=== PATIENT | male | born 1990 | race Caucasian/White ===

== ENCOUNTER 2018-10-05 23:06 | Inpatient (IN) | payer MEDICAID ==
[~2018-10-05] VITALS: Ht 177.8 cm; Wt 95.9 kg
[2018-10-05] MEDS ORDERED: BUPR150T3 PO (23:28)
[2018-10-06 00:05] LABS: HEMATOCRIT 47.4 % (42.0-52.0); HEMOGLOBIN 16.7 g/dl (13.5-17.5); MEAN CORPUSCULAR HEMOGLOBIN 31.8 pg (27.0-33.0); MEAN CORPUSCULAR HGB CONC 35.2 g/dl (32.0-36.5); MEAN CORPUSCULAR VOLUME 90.3 fl (80.0-96.0); PLATELET COUNT, AUTOMATED 375 10^3/uL (150-450); RED BLOOD COUNT 5.25 10^6/uL (4.30-6.10); WHITE BLOOD COUNT 13.6 10^3/uL (4.0-10.0)
[2018-10-06 00:08] LABS: AMPHETAMINES LEVEL URINE NEGATIVE (NEGATIVE); BARBITURATES URINE NEGATIVE (NEGATIVE); BENZODIAZEPINES URINE NEGATIVE (NEGATIVE); CANNABINOIDS URINE NEGATIVE (NEGATIVE); COCAINE METABOLITE URINE NEGATIVE (NEGATIVE); METHADONE URINE NEGATIVE (NEGATIVE); OPIATES URINE NEGATIVE (NEGATIVE); PHENCYCLIDINE URINE NEGATIVE (NEGATIVE)
[2018-10-06] MEDS ORDERED: NICOTINE 21MG/24HR 1 EA TRANSDERMAL TD ONE (00:15)
[2018-10-06 00:39] LABS: ACETAMINOPHEN LEVEL < 2.0 UG/ML (10.0-30.0); ALBUMIN 4.2 GM/DL (3.2-5.2); ALT/SGPT 39 U/L (12-78); BILIRUBIN,DIRECT < 0.1 MG/DL (0.0-0.2); BILIRUBIN,TOTAL 0.3 MG/DL (0.2-1.0); BLOOD UREA NITROGEN 16 MG/DL (7-18); CALCIUM LEVEL 8.3 MG/DL (8.5-10.1); CARBON DIOXIDE LEVEL 24 MEQ/L (21-32); CHLORIDE LEVEL 112 MEQ/L (98-107); CREATININE FOR GFR 0.82 MG/DL (0.70-1.30); ETHYL ALCOHOL (ETHANOL) 0.262 % (0.000-0.010); GLOMERULAR FILTRATION RATE > 60.0 (>60); GLUCOSE, FASTING 106 MG/DL (70-100); POTASSIUM SERUM 4.4 MEQ/L (3.5-5.1); SALICYLATE LEVEL 1.8 MG/DL (5.0-30.0); SODIUM LEVEL 143 MEQ/L (136-145); TOTAL PROTEIN 7.5 GM/DL (6.4-8.2)
[2018-10-06] MEDS ORDERED: buPROPion **XL** TABLET 150MG (WELLBUTRIN XL) PO ONE (11:00)
[2018-10-06] MEDS ORDERED: ACETAMINOPHEN TAB 650MG DOSE (2X325MG) As Ordered ONE (11:02)
[2018-10-06] MEDS ORDERED: ACETAMINOPHEN TAB 650MG DOSE (2X325MG) PO ONE (11:15)
[2018-10-07] MEDS ORDERED: buPROPion **XL** TABLET 150MG (WELLBUTRIN XL) PO ONE (11:00)
[2018-10-07] MEDS ORDERED: ACETAMINOPHEN TAB 650MG DOSE (2X325MG) PO ONE (13:00)
[2018-10-07] MEDS ORDERED: NICOTINE 21MG/24HR 1 EA TRANSDERMAL TD ONE (13:00)
[2018-10-07] MEDS ORDERED: traZODone 50 MG TAB PO PRN ×2 (16:15→16:30)
[2018-10-07] MEDS ORDERED: OLANZapine ORAL DISINTEGRATING TAB 5MG PO PRN ×2 (16:15→16:30)
[2018-10-07] MEDS ORDERED: MOM 30ML SUSPENSION UDC PO PRN ×2 (16:15→16:30)
[2018-10-07] MEDS ORDERED: ACETAMINOPHEN TAB 650MG DOSE (2X325MG) PO PRN ×2 (16:15→16:30)
[2018-10-07] MEDS ORDERED: LORazepam 2 MG TAB PO PRN (17:45)
[2018-10-07 20:18] VITALS: BP 146/103
[2018-10-07 20:21] VITALS: BP 146/103
[2018-10-07] MEDS: HYDROCORTISONE 1% CREAM 30 GM TOP SCH (21:00)
[2018-10-07 21:02] VITALS: BP 140/100
[2018-10-07] MEDS: THIAMINE 100 MG TAB PO SCH (21:18)
--- NOTE | 2018-10-07 22:52 | HPEPDOC ---
General Date of Admission Oct 07, 2018 at 16:03 Date of Service: Oct 07, 2018 Attending Physician: JORDAN MIDDLETON MD Chief Complaint The patient is a 28-year-old male admitted with a reason for visit of E. History of Present Illness Elias is a 28-year-old male, primary medical history significant for nicotine dependence, polysubstance abuse, alcohol abuse, who was brought in by [facility] on account of patient verbalizing suicidal ideation. Patient was intoxicated and it is documented he planned to obtain an knife to cut himself. On assessment, patient denies any knowledge of why he is admitted. He admits to heavy alcohol intake and polysubstance abuse. He denies chest pain, shortness of breath, weakness, nausea, chills, fever. Home Medications Scheduled Bupropion Hcl (Bupropion Xl) 150 Mg Tab.er.24h, 150 MG PO DAILY, (Reported) Allergies Coded Allergies: Sulfa (Sulfonamide Antibiotics) (Verified Allergy, Intermediate, hives, 10/05/18) ENVIROMENTAL (Verified Allergy, Unknown, 10/07/18) Past Medical History Medical History Depression ADHD Nicotine dependence Alcohol abuse, Polysubstance abuse Surgical History Ear tubes Tonsillectomy, adenoidectomy Family History Denies family history Social History * Smoker: current smoker, greater than 1 pack/day (2 packs per day), chew Alcohol: heavy Drugs: marijuana, other (MDMA) A-FIB/CHADSVASC A-FIB History Current/History of A-Fib/PAF?: No Current PO Anticoag Therapy: No Review of Systems Other systems Review of systems was limited due to patient's clinical condition and not been able to recall recent past events. Physical Examination Other physical findings GENERAL: NAD SKIN : Warm, rash to right abdomen HEENT: Atraumatic, normocephalic, PERRL, moist mucous membrane CARDIOVASCULAR: Regular rate and rhythm, S1S2, no JVD, no edema, distal pulses + and palpable RESP: CTAB, no accessory muscle use noted ABDOMEN: BS+ non distended non tender MS: no joint deformities NEURO: Alert and oriented x 3, CN2-12 grossly intact PSYCH: no anxiety or agitation, appropriate mood and affect. Vital Signs Vital Signs Date Time Temp Pulse Resp B/P (MAP) Pulse Ox O2 Delivery O2 Flow Rate FiO2 10/07/18 21:02 140/100 (113) 10/07/18 20:21 98.4 93 18 99 10/07/18 15:11 Room Air Assessment/Plan Abdominal rash with pruritus -Hydrocortisone cream Alcohol abuse -Assessment and management by primary team Polysubstance abuse -Assessment and management by primary team ADHD -Assessment and management by primary team Plan / VTE VTE Prophylaxis Ordered?: No VTE Exclusion Mechanical Proph: Low Risk for VTE HARESH TELLEZ DIGITAL MEDIA COORDINATOR Oct 07, 2018 22:51
[2018-10-08 06:00] VITALS: BP 124/76
[2018-10-08] MEDS: HYDROCORTISONE 1% CREAM 30 GM TOP SCH ×2 (08:28→21:00)
[2018-10-08] MEDS: THIAMINE 100 MG TAB PO SCH (08:29)
[2018-10-08] MEDS: buPROPion **XL** TABLET 150MG (WELLBUTRIN XL) PO SCH (08:31)
[2018-10-08] MEDS ORDERED: buPROPion **XL** TABLET 150MG (WELLBUTRIN XL) PO SCH (09:00)
[2018-10-08] MEDS ORDERED: FOLIC ACID 1 MG TAB PO SCH (09:00)
[2018-10-08] MEDS ORDERED: MULTIVITAMINS/MINERALS THERAP 1 TAB PO SCH (09:00)
[2018-10-08] MEDS: NICOTINE 21MG/24HR 1 EA TRANSDERMAL TD SCH (10:03)
--- NOTE | 2018-10-08 10:59 | MHHPEPDOC ---
General Date Of Admission: Oct 07, 2018 Legal Status: 9.39 Chief Complaint "I feeling suicidal." History of Present Illness HISTORY OF THE PRESENT ILLNESS: Patient is a 28 -year-old , male, with a history of depression and alcohol abuse who was brought to ED by PD under 9.41 after expressing thoughts to suicide with plan to get a knife and cut himself to his family while intoxicated per ED. In the ED, pt stated he could not remember what happened, why he was here, and that he had endorsed SI that he denied in the ED due to heavy intoxication with alcohol. Pt stated in the ED "I was asleep on a wood pile and I woke up with a flashlight in my face." He states that he probably got in an argument with his mother who he lives with ("she aways annoys me") while intoxicated and just said he was suicidal out of anger in the ED. He denied SI/HI, hallucinations, delusions in the ED. Psychiatric Review of Systems Depression (2 or more weeks): depressed mood, suicidal thoughts Madie (4 or more days of): denies Psychosis: denies PTSD: denies Anxiety: situational anxiety, stressor related anxiety Anxiety/ 6 months or more of: restlessness, keyed up, irritability Past Psychiatric History Previous Psychiatric Diagnosis: Depression, alcohol use d/o, ADHD Previous Psychiatric Admissions: [facility] 04/14/14 for SI and alcohol abuse and once in [place] Suicide Attempts: denies Psychiatric Follow-up: denies Psychiatric medications: currently takes Wellbutrin 150mg daily prescribed by his PCP in [place]. adderall in the past Past Medical History Medical Problems knee pain, blurred vision rt eye Head Injury: No Seizures: No Hospitalizations: Yes Surgeries: Yes (tonsilectomy and adenoidectomy, laryngotomy) Family Medical/Psychiatric HX Medical Problems noncontributory Psychiatric Disorders: Yes (mother - possible depression) Suicide Attemps/Completions: Yes (Cousin suicide attempt) Addiction History nicotine (smokes and chews tobacco), alcohol (bal 0.262) Social History Childhood: Born in [place], raised in [place] by his mother until he was 10y/o then his mother went to [employer] for [employer] and he moved in with his father. 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 Social Support: mother Legal: denies Marital: single, never , no kids (doesn't want kids b/c they annoy him) Mental Status Examination General Appearance: well groomed, appears stated age, hospital scubs/clothing Build: average Demeanor: average Eye Contact: average Activity: average Behavior: cooperative Speech: clear, spontaneous, reg/rate,rhythm,volume Mood: euthymic, irritable Mood "fine" Affect: full, appropriate, congruent Thought Process: logical/linear, intact Thought Content (Delusions): none reported, denies SI, HI, AVH Thought Content (Other): none reported Thought Content (Aggressive): none reported Perception (Hallucinations): none reported Perception (Other): none reported Cognition (Impairment of): none reported Cognition(Intelligence Est.): average Oriented: Awake, Alert, Oriented times three Insight: fair Judgment: Fair Psychosis: Denies Diagnoses depression unspecified r/o substance induced mood d/o secondary alcohol alcohol use d/o A-FIB/CHADSVASC A-FIB History Current/History of A-Fib/PAF?: No Current PO Anticoag Therapy: No Treatment Treatment ordered: NONE Reason Anticoagulant not given: Not indicated/[id number] Assessment Pt seen and states "I have no clue why I'm here... I was just drunk" and denies depression and SI. States he takes Wellbutrin XL prescribed by his PCP in [place]. States he doesn't drink regularly and it was the first time he had drank while on Wellburtin, realizes he should do that again. States the last thing he remember is taking shots of liquor with his friend then waking up to a flashlight (officer). Denies depression, SI/HI, hallucinations, delusions. States he just wants to go home. Initial Treatment Plan 1. Patient was admitted on a 9.39 status. 2. Complete history was obtained. 3. With patients permission, family will be contacted and database will be expanded. 4. Patients medication regimen will be reviewed and changed accordingly. 5. Patient will be provided with protected environment. 6. Patient will be treated with individual, group, and milieu therapies. 7. Patient will receive supportive psych-education. 8. Discharge planning will commence immediately. 9. Outpatient follow-up treatment will be strongly recommended. 10. The initial treatment plan will focus initially on: * Depression. * Risk for suicide. * Substance abuse. 11. monitor for safety ESTIMATED LENGTH OF STAY: 3-5 DAYS. TIME SPENT COUNSELING AND COORDINATING INITIAL CARE: 60 minutes. Vital Signs Vital Signs Date Time Temp Pulse Resp B/P (MAP) Pulse Ox O2 Delivery O2 Flow Rate FiO2 10/08/18 06:00 60 124/76 10/08/18 06:00 98.0 18 10/07/18 20:21 99 10/07/18 15:11 Room Air Medications Scheduled Bupropion Hcl (Bupropion Xl) 150 Mg Tab.er.24h, 150 MG PO DAILY, (Reported) Allergies Coded Allergies: Sulfa (Sulfonamide Antibiotics) (Verified Allergy, Intermediate, hives, 10/05/18) ENVIROMENTAL (Verified Allergy, Unknown, 10/07/18) TROY SAMANIEGO DO Oct 08, 2018 10:59 am
[2018-10-08 18:11] VITALS: BP 145/76
[2018-10-09 06:21] VITALS: BP 113/61
[2018-10-09] MEDS: NICOTINE 21MG/24HR 1 EA TRANSDERMAL TD SCH (08:03)
[2018-10-09] MEDS: buPROPion **XL** TABLET 150MG (WELLBUTRIN XL) PO SCH (08:03)
[2018-10-09] MEDS: HYDROCORTISONE 1% CREAM 30 GM TOP SCH (08:05)
[2018-10-09] MEDS ORDERED: BUPR150T3 PO (08:37)
--- NOTE | 2018-10-09 08:37 | MHDSPDOC ---
[facility] Discharge Summary Discharge Summary DATE OF ADMISSION: Oct 07, 2018 at 4:03 pm DATE OF DISCHARGE: October 09, 2018 DISCHARGE DIAGNOSES: depression unspecified r/o substance induced mood d/o secondary alcohol alcohol use d/o REASON FOR ADMISSION: Patient is a 28 -year-old , male, with a history of depression and alcohol abuse who was brought to ED by PD under 9.41 after expressing thoughts to suicide with plan to get a knife and cut himself to his family while intoxicated per ED. In the ED, pt stated he could not remember what happened, why he was here, and that he had endorsed SI that he denied in the ED due to heavy intoxication with alcohol. Pt stated in the ED "I was asleep on a wood pile and I woke up with a flashlight in my face." He states that he probably got in an argument with his mother who he lives with ("she aways annoys me") while intoxicated and just said he was suicidal out of anger in the ED. He denied SI/HI, hallucinations, delusions in the ED. CONSULTANTS INVOLVED:none TREATMENT AND PROGRESS ON THE UNIT : Pt was admitted to [facility], seen for psychiatric assessment and restarted on his outpatient medication wellburtin xl 150mg daily. He was provided trazodone 50mg qhs prn insomnia. Pt found his medications beneficial and tolerated them well. He attended groups daily during his stay. His symptoms improved with treatment. On day of discharge he denied depression, anxiety, insomnia, SI/HI, hallucinations, delusions, alcohol withdra wal. He was discharged home with follow-up at [facility] and inpatient substance abuse treatment next week (set up by pia prior admission). He felt safe for discharge. DISCHARGE ASSESSMENT: Pt seen and states that his mood is good and that his looking forward to going home to his mother's house today. States he slept well last night. Feels he is tolerating his medications and they're beneficial. He is attending groups and finding them helpful. He denies depression, anxiety, insomnia, SI/HI, hallucinations, delusions, alcohol withdrawal. Pt feels safe to be discharged home. MENTAL STATUS EXAMINATION ON DISCHARGE: General Appearance: well groomed, appears stated age, hospital scrubs/clothing Build: average Demeanor: average Eye Contact: average Activity: average Behavior: cooperative Speech: clear, spontaneous, reg/rate,rhythm,volume Mood: euthymic, full Mood "good" Affect: full, appropriate, congruent Thought Process: logical/linear, intact Thought Content (Delusions): none reported, denies SI, HI, AVH Thought Content (Other): none reported Thought Content (Aggressive): none reported Perception (Hallucinations): none reported Perception (Other): none reported Cognition (Impairment of): none reported Cognition(Intelligence Est.): average Oriented: Awake, Alert, Oriented times three Insight: good Judgment: good Psychosis: Denies MEDICATIONS ON DISCHARGE: Wellbutrin xl 150mg daily PLAN/FOLLOWUP ARRANGEMENTS: D/c home with follow-up at [facility] and inpatient substance abuse treatment next week. The amount of time spent in the coordination of care for this patient was approximately 30 minutes. Vital Signs/I&Os Vital Signs Date Time Temp Pulse Resp B/P (MAP) Pulse Ox O2 Delivery O2 Flow Rate FiO2 10/09/18 06:21 97.9 75 16 113/61 (78) 10/07/18 20:21 99 10/07/18 15:11 Room Air Medications Scheduled Bupropion Hcl (Bupropion Xl) 150 Mg Tab.er.24h, 150 MG PO DAILY, (Reported) Allergies Coded Allergies: Sulfa (Sulfonamide Antibiotics) (Verified Allergy, Intermediate, hives, 10/05/18) ENVIROMENTAL (Verified Allergy, Unknown, 10/07/18) TROY SAMANIEGO DO Oct 09, 2018 8:37 am
== END 2018-10-09 10:15 | disposition home or self-care (01) | DRG 754 ==
LOC: M ED 23:06 → M ED INP 10-07 16:03 → M PSY 10-07 18:54
PROVIDERS: ADMIT Psychiatry & Neurology Addiction Medicine; ATTEND Psychiatry & Neurology Psychiatry
DX: F32.9 Major depressive disorder, single episode, unspecified (principal); F10.94 Alcohol use, unspecified with alcohol-induced mood disorder; R45.851 Suicidal ideations; Z88.2 Allergy status to sulfonamides; F17.200 Nicotine dependence, unspecified, uncomplicated; F90.9 Attention-deficit hyperactivity disorder, unspecified type

== ENCOUNTER 2019-05-19 15:28 | Inpatient (IN) | payer MEDICAID, OTHER ==
[~2019-05-19] VITALS: Ht 177.8 cm; Wt 120.2 kg
[~2019-05-19 15:28] MED LIST: BUPR150T3 PO
[2019-05-19] MEDS ORDERED: GABA-845 PO (16:11)
[2019-05-19] MEDS ORDERED: SERT-138 PO (16:11)
[2019-05-19] MEDS ORDERED: TRAZ-257 PO (16:11)
[2019-05-19 16:43] LABS: HEMATOCRIT 46.7 % (42.0-52.0); HEMOGLOBIN 16.6 g/dl (13.5-17.5); MEAN CORPUSCULAR HEMOGLOBIN 31.6 pg (27.0-33.0); MEAN CORPUSCULAR HGB CONC 35.5 g/dl (32.0-36.5); MEAN CORPUSCULAR VOLUME 88.8 fl (80.0-96.0); PLATELET COUNT, AUTOMATED 385 10^3/uL (150-450); RED BLOOD COUNT 5.26 10^6/uL (4.30-6.10); WHITE BLOOD COUNT 9.1 10^3/uL (4.0-10.0)
[2019-05-19] MEDS ORDERED: NICOTINE 21MG/24HR 1 EA TRANSDERMAL TD ONE (17:15)
[2019-05-19 17:25] LABS: ACETAMINOPHEN LEVEL < 2.0 UG/ML (10.0-30.0); ALBUMIN 4.6 GM/DL (3.2-5.2); ALT/SGPT 398 U/L (12-78); BILIRUBIN,DIRECT 0.1 MG/DL (0.0-0.2); BILIRUBIN,TOTAL 0.3 MG/DL (0.2-1.0); BLOOD UREA NITROGEN 10 MG/DL (7-18); CALCIUM LEVEL 8.9 MG/DL (8.5-10.1); CARBON DIOXIDE LEVEL 23 MEQ/L (21-32); CHLORIDE LEVEL 109 MEQ/L (98-107); CREATININE FOR GFR 0.72 MG/DL (0.70-1.30); ETHYL ALCOHOL (ETHANOL) 0.125 % (0.000-0.010); GLOMERULAR FILTRATION RATE > 60.0 (>60); GLUCOSE, FASTING 82 MG/DL (70-100); POTASSIUM SERUM 4.3 MEQ/L (3.5-5.1); SALICYLATE LEVEL < 1.7 MG/DL (5.0-30.0); SODIUM LEVEL 141 MEQ/L (136-145); TOTAL PROTEIN 7.9 GM/DL (6.4-8.2)
[2019-05-19 17:55] LABS: AMPHETAMINES LEVEL URINE NEGATIVE (NEGATIVE); BARBITURATES URINE NEGATIVE (NEGATIVE); BENZODIAZEPINES URINE NEGATIVE (NEGATIVE); CANNABINOIDS URINE NEGATIVE (NEGATIVE); COCAINE METABOLITE URINE NEGATIVE (NEGATIVE); METHADONE URINE NEGATIVE (NEGATIVE); OPIATES URINE NEGATIVE (NEGATIVE); PHENCYCLIDINE URINE NEGATIVE (NEGATIVE)
[2019-05-19] MEDS ORDERED: MAALOX 30 ML SUSP *UDC PO PRN (21:30)
[2019-05-19] MEDS ORDERED: MOM 30ML SUSPENSION UDC PO PRN (21:30)
[2019-05-19 22:10] VITALS: BP 142/83
[2019-05-19] MEDS: THIAMINE 100 MG TAB PO SCH (23:15)
[2019-05-20 06:49] VITALS: BP 142/98
[2019-05-20 07:30] VITALS: BP 142/98
[2019-05-20] MEDS: buPROPion **XL** TABLET 150MG (WELLBUTRIN XL) PO SCH (09:00)
[2019-05-20] MEDS: FOLIC ACID 1 MG TAB PO SCH (09:55)
[2019-05-20] MEDS: MULTIVITAMINS/MINERALS THERAP 1 TAB PO SCH (09:55)
[2019-05-20] MEDS: THIAMINE 100 MG TAB PO SCH ×2 (09:55→20:55)
[2019-05-20] MEDS: NICOTINE 21MG/24HR 1 EA TRANSDERMAL TD SCH (09:57)
--- NOTE | 2019-05-20 11:22 | HPEPDOC ---
[facility] Medical History & Physical Date of Admission May 20, 2019 Date of Service: May 20, 2019 History and Physical CHIEF COMPLAINT: Hospitalist consult for medical co-management for inpatient medical health HISTORY OF PRESENT ILLNESS: 29 yo male admitted for suicidal ideation, patient seen and examined at bedside. 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 Otherwise no other medical complaints. PAST MEDICAL HISTORY: Denies PAST SURGICAL HISTORY: Denies SOCIAL HISTORY: tobacco - chews 1 can per day, 6 years; smoked 2 ppd for 18 years; polysubstance abuse including IVDA ALLERGIES: Please see below. REVIEW OF SYSTEMS: Negative ex HOME MEDICATIONS: Please see below. PHYSICAL EXAMINATION: VITAL SIGNS: See below General: NAD, lying comfortably in bed HEENT: NC/AT, EOMI, PERRL Lungs: CTA B/L Heart: +S1S2, RRR Abd: soft, NT, +BS, obese Ext: no edema LABORATORY DATA: See below. MICROBIOLOGY: Please see below. ASSESSMENT: 29 yo male [facility], medicine consulted for co- management. #SI - follow as per psychiatry #nicotine abuse - continue with nicotine replacement therapy Vital Signs Vital Signs Date Time Temp Pulse Resp B/P (MAP) Pulse Ox O2 Delivery O2 Flow Rate FiO2 05/20/19 06:49 98.0 84 18 142/98 (113) 05/19/19 21:14 98 Room Air Laboratory Data Labs 24H Laboratory Tests 2 05/19/19 16:23: Nucleated Red Blood Cells % (auto) 0.0, Anion Gap 9, Glomerular Filtration Rate > 60.0, Calcium Level 8.9, Total Bilirubin 0.3, Direct Bilirubin 0.1, Aspartate Amino Transf (AST/SGOT) 141H, Alanine Aminotransferase (ALT/SGPT) 398H, Alkaline Phosphatase 88, Total Protein 7.9, Albumin 4.6, Albumin/Globulin Ratio 1.39, Thyroid Stimulating Hormone (TSH) 1.340, Salicylates Level < 1.7L, Acetaminophen Level < 2.0L, Ethyl Alcohol Level 0.125H 05/19/19 16:54: Urine Opiates Screen NEGATIVE, Urine Methadone Screen NEGATIVE, Urine Barbiturates Screen NEGATIVE, Urine Phencyclidine Screen NEGATIVE, Urine Amp hetamines Screen NEGATIVE, Urine Benzodiazepines Screen NEGATIVE, Urine Cocaine Metabolite Screen NEGATIVE, Urine Cannabinoids Screen NEGATIVE CBC/BMP Laboratory Tests 05/19/19 16:23 Home Medications Scheduled PRN Trazodone HCl (Trazodone HCl) 100 Mg Tablet, 100 MG PO QPM PRN for SLEEP Allergies Coded Allergies: Sulfa (Sulfonamide Antibiotics) (Verified Allergy, Intermediate, hives, 10/05/18) ENVIROMENTAL (Verified Allergy, Unknown, 10/07/18) A-FIB/CHADSVASC A-FIB History Current/History of A-Fib/PAF?: No BATSHEVA SIMPSON MD May 20, 2019 11:22
[2019-05-20] MEDS ORDERED: SERTRALINE HCL 50 MG TAB PO ONE (14:00)
[2019-05-20] MEDS: GABAPENTIN 400 MG CAP PO SCH ×2 (15:05→20:55)
[2019-05-20 16:00] VITALS: BP 148/90
[2019-05-20 16:06] VITALS: BP 148/87
[2019-05-20] MEDS: LORazepam 2 MG TAB PO PRN (16:09)
[2019-05-20] MEDS: traZODone 50 MG TAB PO PRN (21:59)
[2019-05-21 06:47] VITALS: BP 136/91
[2019-05-21 07:30] VITALS: BP 136/91
--- NOTE | 2019-05-21 08:31 | MHHPE ---
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 Upon arrival his blood alcohol level was 0.125. He voiced having suicidal ideation, stating "I have nothing more to live for." He said that he had lost his job. Actually, about a few weeks ago he said that he lost a job because he was trying to kill himself via an overdose on heroin. Today he says it was because he was withdrawing from alcohol. He admits he was using heroin for about 2 weeks "to go to sleep." Patient reports a history of multiple suicidal attempts in the past. He also had a history of self-mutilating behavior in the past. He says he has been depressed for 2 months, feeling hopeless and helpless with interrupted sleep. He says he has been staying with a friend about a week ago because he had to turn in his apartment at that point. The patient has a significant history of alcohol abuse. He states "I drink until I drop." He says that he has not used heroin for the past 3 weeks since he tried to overdose with heroin. He does have a significant history of abusing heroin in he past. He had been receiving outpatient treatment at [facility]. He stopped going 4 months ago, because at that point he says that he was having suicidal thoughts, and they wanted him to get admitted. He said he came to the emergency room but that he knew exactly what to say to the doctors in order not to get admitted. He states he had gone into an inpatient rehabilitation program for his substance use and completed it at the time. He says he was discharged on gabapentin 400 mg three times a day, Strattera 6 mg daily, trazodone 100 mg at bedtime as needed for insomnia, and Zoloft 100 mg. Prior to that he was treated with Wellbutrin, but he said that that caused constipation. He said that he ran out of medications. I did not elicit any hypomanic or manic-type symptoms or panic-like symptoms or obsessive-compulsive disorder (OCD) in this patient. PAST PSYCHIATRIC HISTORY: Patient has had multiple prior admissions. This last admission was at the [facility] from 10/07/2028 until 10/09/2018, where he was diagnosed with unspecified depression without substance-induced mood disorder secondary to alcohol. He was in alcohol use disorder. He was admitted after he had suicidal thoughts with a plan to cut himself and he was discharged on Wellbutrin XL 150 mg daily. The patient says he has a history of multiple suicide attempts, as I have noted above. He says he was diagnosed with attention deficit hyperactivity disorder (ADHD) in the past and treated with Strattera. FAMILY HISTORY: He indicates that his mother may possibly have depression and that he has a cousin who attempted suicide. SUBSTANCE ABUSE HISTORY: This is as noted above. ABUSE HISTORY: Patient denies any history of being abused, physically or sexually. REVIEW OF SYSTEMS: VITAL SIGNS: Blood pressure 142/98, pulse 84, respirations 18. APPEARANCE: He did not appear in any apparent distress. NEUROMUSCULAR SYSTEM: There are no involuntary movements noted, and gait was normal. All other systems were reviewed and found to be negative. MENTAL STATUS EXAMINATION: This patient is alert and oriented times three. Eye contact is fair. Psychomotor activity is decreased. He is verbally spontaneous. There is no formal thought disorder noted. Mood is depressed. Affect full range and appropriate. He is not psychotic, suicidal, homicidal. Concentration and memory are good. Insight and judgment are good. DIAGNOSES: 1. Unspecified depressive disorder. 2. Rule out substance-induced mood disorder secondary to alcohol and opioids. 3. Alcohol use disorder. 4. Borderline personality disorder. TREATMENT PLAN: At this point, patient will be further evaluated for depressive symptoms. We will restart the patient on his medications, to include the Zoloft, but I will start him at 50 mg daily, trazodone 100 mg at bedtime as needed for insomnia, Neurontin 400 mg three times a day for anxiety. I will hold off on restarting the Strattera. We will also monitor the patient for any alcohol withdrawal symptoms via the Clinical [place] Withdrawal Assessment (CIWA). The patient says that he is interested in going to inpatient rehabilitation program.
[2019-05-21] MEDS: buPROPion **XL** TABLET 150MG (WELLBUTRIN XL) PO SCH ×2 (09:00→10:00)
[2019-05-21] MEDS: GABAPENTIN 400 MG CAP PO SCH ×3 (10:00→21:20)
[2019-05-21] MEDS: THIAMINE 100 MG TAB PO SCH ×2 (10:00→21:20)
[2019-05-21] MEDS: MULTIVITAMINS/MINERALS THERAP 1 TAB PO SCH (10:00)
[2019-05-21] MEDS: NICOTINE 21MG/24HR 1 EA TRANSDERMAL TD SCH (10:00)
[2019-05-21] MEDS: FOLIC ACID 1 MG TAB PO SCH (10:00)
--- NOTE | 2019-05-21 10:03 | MHIPNPDOC ---
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 He arrived intoxicated on alcohol. He has lost his job due to significant substance abuse. Interval History Narrative: The patient is met with today. He is more friendly and engaged. Reports that he is interested in rehab. Affective: The patient still reports some low mood, although is more jovial today. Psychotic: None elicited. Anxiety: Worries about his social situation. Eating and sleeping behaviors: Normalizing, reports good sleep last night. Group Attendance: More frequent. Medication Side effects: See ROS below Behavioral problems/significant events overnight: None reported. Staff Report: Patient becoming more friendly and amenable. Review Of Systems General: Does report some grogginess with trazodone and Ativan together, denies fever Cardiovascular: Denies chest pain or palpitations GI: Denies Nausea, vomiting, or bowel changes Respiratory: Denies shortness of breath or cough Neuro: Denies dizziness, tremors Derm: Denies any rashes or pruritus : Denies any dysuria or urinary problems MSK: Denies any muscle tightness or stiffness HEENT: Denies any vision changes or headaches Psychotherapy None on this visit. Vital Signs Reviewed. Mental Status Examination General: Fair hygiene Speech: Spontaneous and fluid Thought processes: Linear and logical MSK: Smooth and coordinated gait, no signs of tremors or involuntary orofacial movements Thought content: Future orientated Abstract reasoning, and computation: Intact Description of associations: Intact Description of abnormal or psychotic thoughts: Denies any suicidal or homicidal ideation. Denies any auditory or visual hallucinations. Does not appear to be responding to internal stimuli. Does not appear to be endorsing any bizarre or paranoid ideation. Judgment: Appears to be improving Insight: Appears to be improving from previous Orientation: Alert and orientated 3 Cognition: Grossly normal Recent and remote memory: Intact Attention span and concentration: Intact Fund of knowledge: Adequate Mood: "okay" Affect: Euthymic with a full range Diagnoses Unspecified depressive disorder, likely substance induced. Alcohol use disorder, moderate to severe. Opioid use disorder, unspecified. Cannabis use disorder, severe. Cluster B personality traits. Tobacco use disorder, moderate. Assessment and Plan Unspecified depressive disorder: Continue sertraline 50 mg daily, discontinue Wellbutrin as patient reports not taking it currently. Alcohol use disorder: Continue CIWA. Tobacco use disorder: Nicotine patch. Opioid use disorder: Recommend rehab. Cluster B personality traits: We will monitor for behavioral problems. Disposition The patient will be retained on a further admission as the patient is being triaged for potential transfer to rehab, his significant substance abuse history being properly treated would be ideal to reducing his likelihood of readmission, as it appears to be a proximal factor in his presentation. Time Spent 15 minutes. Vital Signs Vital Signs Date Time Temp Pulse Resp B/P (MAP) Pulse Ox O2 Delivery O2 Flow Rate FiO2 05/21/19 06:47 96.9 77 18 136/91 (106) 05/19/19 21:14 98 Room Air Current Medications Current Medications Medications (Trade) Dose Ordered Sig/Kleber Route PRN Reason Start Time Stop Time Status Last Admin Dose Admin Acetaminophen (Tylenol Tab) 650 mg Q6HP PRN PO HEADACHE or DISCOMFORT 05/19/19 21:30 Al Hydrox/Mg Hydrox/Simethicone (Mylanta) 30 ml Q4HP PRN PO HEARTBURN/INDIGESTION 05/19/19 21:30 Bupropion HCl (Wellbutrin Xl) 150 mg QAM PO 05/20/19 09:00 05/21/19 10:00 Folic Acid (Folic Acid) 1 mg DAILY PO 05/20/19 09:00 05/21/19 10:00 Gabapentin (Neurontin) 400 mg TID PO 05/20/19 16:00 05/21/19 10:00 Home Med (Med Rec Complete!) ASDIRECTED XX 05/19/19 16:30 05/19/19 16:23 DC Lorazepam (Ativan) 2 mg ASDIRECTED PRN PO SEE PROTOCOL 05/19/19 21:45 05/20/19 16:09 Magnesium Hydroxide (Milk Of Magnesia) 30 ml DAILYPRN PRN PO CONSTIPATION 05/19/19 21:30 Multivitamins (Theragram-M) 1 tab DAILY PO 05/20/19 09:00 05/21/19 10:00 Nicotine (Nicoderm Cq 21mg) 1 patch DAILY TD 05/20/19 09:00 05/21/19 10:00 Thiamine HCl (Thiamine HCl) 100 mg BID PO 05/19/19 21:00 05/22/19 09:01 05/21/19 10:00 Trazodone HCl (Desyrel) 100 mg QHSP PRN PO INSOMNIA 05/19/19 21:30 05/20/19 21:59 Allergies Coded Allergies: Sulfa (Sulfonamide Antibiotics) (Verified Allergy, Intermediate, hives, 10/05/18) ENVIROMENTAL (Verified Allergy, Unknown, 10/07/18) RENAE STRONG DO May 21, 2019 10:02
[2019-05-21] MEDS ORDERED: SERTRALINE HCL 50 MG TAB PO ONE (12:00)
[2019-05-21 16:00] VITALS: BP 167/115
[2019-05-21 17:51] VITALS: BP 165/115
[2019-05-21] MEDS: LORazepam 2 MG TAB PO PRN (17:55)
[2019-05-21 22:11] VITALS: BP 138/96
[2019-05-21] MEDS: traZODone 50 MG TAB PO PRN (22:32)
[2019-05-22 06:31] VITALS: BP 142/87
[2019-05-22 06:32] VITALS: BP 142/87
[2019-05-22] MEDS: GABAPENTIN 400 MG CAP PO SCH ×3 (08:41→20:18)
[2019-05-22] MEDS: NICOTINE 21MG/24HR 1 EA TRANSDERMAL TD SCH (08:41)
[2019-05-22] MEDS: THIAMINE 100 MG TAB PO SCH (08:41)
[2019-05-22] MEDS: FOLIC ACID 1 MG TAB PO SCH (08:41)
[2019-05-22] MEDS: MULTIVITAMINS/MINERALS THERAP 1 TAB PO SCH (08:41)
[2019-05-22] MEDS: ACETAMINOPHEN TAB 650MG DOSE (2X325MG) PO PRN (08:41)
[2019-05-22] MEDS: SERTRALINE HCL 50 MG TAB PO SCH (08:41)
--- NOTE | 2019-05-22 08:44 | MHIPNPDOC ---
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 He arrived intoxicated on alcohol. He has lost his job due to significant substance abuse. Interval History Narrative: The patient is met with today in the group setting. He reports that he is excited about being accepted to rehab. Affective: The patient reports improving low mood, less problems with disinterest. Psychotic: None elicited. Anxiety: Reports less worries. Eating and sleeping behaviors: Normalizing, reports good sleep last night. Group Attendance: More frequent. Medication Side effects: See ROS below Behavioral problems/significant events overnight: None reported. Staff Report: Patient becoming more friendly and amenable. Review Of Systems General: Denies any fevers or appetite changes Cardiovascular: Denies chest pain or palpitations GI: Denies Nausea, vomiting, or bowel changes Respiratory: Denies shortness of breath or cough Neuro: Denies dizziness, tremors Derm: Denies any rashes or pruritus : Denies any dysuria or urinary problems MSK: Denies any muscle tightness or stiffness HEENT: Denies any vision changes or headaches Psychotherapy None on this visit. Vital Signs Reviewed. Mental Status Examination General: Fair hygiene Speech: Spontaneous and fluid Thought processes: Linear and logical MSK: Smooth and coordinated gait, no signs of tremors or involuntary orofacial movements Thought content: Future orientated Abstract reasoning, and computation: Intact Description of associations: Intact Description of abnormal or psychotic thoughts: Denies any suicidal or homicidal ideation. Denies any auditory or visual hallucinations. Does not appear to be responding to internal stimuli. Does not appear to be endorsing any bizarre or paranoid ideation. Judgment: Appears to be improving Insight: Appears to be improving from previous Orientation: Alert and orientated 3 Cognition: Grossly normal Recent and remote memory: Intact Attention span and concentration: Intact Fund of knowledge: Adequate Mood: "okay" Affect: Euthymic with a full range Diagnoses Unspecified depressive disorder, likely substance induced. Alcohol use disorder, moderate to severe. Opioid use disorder, unspecified. Cannabis use disorder, severe. Cluster B personality traits. Tobacco use disorder, moderate. Assessment and Plan Unspecified depressive disorder: Continue sertraline 50 mg daily. Alcohol use disorder: Continue CIWA. Tobacco use disorder: Nicotine patch. Opioid use disorder: Recommend rehab. Cluster B personality traits: We will monitor for behavioral problems. Disposition The patient has been accepted to rehab, we'll attempt to ascertain bed date, ideally minimizing the time between discharge and rehab will be med[place] to reducing readmissions, as patient's symptoms are strongly consistent with substance- induced mood problems. Time Spent 15 minutes. Vital Signs Vital Signs Date Time Temp Pulse Resp B/P (MAP) Pulse Ox O2 Delivery O2 Flow Rate FiO2 05/22/19 06:32 97.4 74 16 142/87 (105) 05/19/19 21:14 98 Room Air Current Medications Current Medications Medications (Trade) Dose Ordered Sig/Kleber Route PRN Reason Start Time Stop Time Status Last Admin Dose Admin Acetaminophen (Tylenol Tab) 650 mg Q6HP PRN PO HEADACHE or DISCOMFORT 05/19/19 21:30 05/22/19 08:41 Al Hydrox/Mg Hydrox/Simethicone (Mylanta) 30 ml Q4HP PRN PO HEARTBURN/INDIGESTION 05/19/19 21:30 Bupropion HCl (Wellbutrin Xl) 150 mg QAM PO 05/20/19 09:00 05/21/19 11:06 DC Folic Acid (Folic Acid) 1 mg DAILY PO 05/20/19 09:00 05/22/19 08:41 Gabapentin (Neurontin) 400 mg TID PO 05/20/19 16:00 05/22/19 08:41 Home Med (Med Rec Complete!) ASDIRECTED XX 05/19/19 16:30 05/19/19 16:23 DC Lorazepam (Ativan) 2 mg ASDIRECTED PRN PO SEE PROTOCOL 05/19/19 21:45 05/21/19 17:55 Magnesium Hydroxide (Milk Of Magnesia) 30 ml DAILYPRN PRN PO CONSTIPATION 05/19/19 21:30 Multivitamins (Theragram-M) 1 tab DAILY PO 05/20/19 09:00 05/22/19 08:41 Nicotine (Nicoderm Cq 21mg) 1 patch DAILY TD 05/20/19 09:00 05/22/19 08:41 Sertraline HCl (Zoloft) 50 mg DAILY PO 05/22/19 09:00 05/22/19 08:41 Thiamine HCl (Thiamine HCl) 100 mg BID PO 05/19/19 21:00 05/22/19 09:01 05/22/19 08:41 Trazodone HCl (Desyrel) 100 mg QHSP PRN PO INSOMNIA 05/19/19 21:30 05/21/19 22:32 Allergies Coded Allergies: Sulfa (Sulfonamide Antibiotics) (Verified Allergy, Intermediate, hives, 10/05/18) ENVIROMENTAL (Verified Allergy, Unknown, 10/07/18) RENAE STRONG DO May 22, 2019 08:43
[2019-05-22] MEDS: OSELTAMIVIR PHOSPHATE 75 MG CAP (TAMIFLU) PO SCH ×2 (12:15→20:18)
[2019-05-22 17:51] VITALS: BP 148/73
[2019-05-22 20:03] VITALS: BP 165/87
[2019-05-22 20:04] VITALS: BP 165/87
[2019-05-22 20:15] VITALS: BP 165/87
[2019-05-22] MEDS: LORazepam 2 MG TAB PO PRN (21:34)
[2019-05-22] MEDS: traZODone 50 MG TAB PO PRN (22:02)
[2019-05-23 06:19] VITALS: BP 129/81
[2019-05-23 06:20] VITALS: BP 129/81
--- NOTE | 2019-05-23 09:11 | MHIPNPDOC ---
[facility] Progress Note Progress Note DATE OF SERVICE: 05/23/19 HISTORY: . VITAL SIGNS: See below. NEW TEST RESULTS: . CURRENT MEDICATIONS: See below. MENTAL STATUS EXAMINATION: Patient is a -year old male, who is . Speech: Is . Language skills are . Thought processes including: . Thought content: . Abstract reasoning, and computation: . Description of associ ations: . Description of abnormal or psychotic thoughts: . Judgment: . Insight: [very limited, good, fair. poor]. Orientation: . Recent and remote memory: . Attention span and concentration: . Language: . Fund of knowledge: . Mood: . Affect: . DIAGNOSES: 1. . 2. . 3. . ASSESSMENT: MANAGEMENT PLAN: . TIME SPENT: minutes. Vital Signs Vital Signs Date Time Temp Pulse Resp B/P (MAP) Pulse Ox O2 Delivery O2 Flow Rate FiO2 05/23/19 06:20 97.3 95 18 129/81 (97) 05/19/19 21:14 98 Room Air Current Medications Current Medications Medications (Trade) Dose Ordered Sig/Kleber Route PRN Reason Start Time Stop Time Status Last Admin Dose Admin Acetaminophen (Tylenol Tab) 650 mg Q6HP PRN PO HEADACHE or DISCOMFORT 05/19/19 21:30 05/22/19 08:41 Al Hydrox/Mg Hydrox/Simethicone (Mylanta) 30 ml Q4HP PRN PO HEARTBURN/INDIGESTION 05/19/19 21:30 Bupropion HCl (Wellbutrin Xl) 150 mg QAM PO 05/20/19 09:00 05/21/19 11:06 DC Folic Acid (Folic Acid) 1 mg DAILY PO 05/20/19 09:00 05/22/19 08:41 Gabapentin (Neurontin) 400 mg TID PO 05/20/19 16:00 05/22/19 20:18 Home Med (Med Rec Complete!) ASDIRECTED XX 05/19/19 16:30 05/19/19 16:23 DC Lorazepam (Ativan) 2 mg ASDIRECTED PRN PO SEE PROTOCOL 05/19/19 21:45 05/22/19 21:34 Magnesium Hydroxide (Milk Of Magnesia) 30 ml DAILYPRN PRN PO CONSTIPATION 05/19/19 21:30 Multivitamins (Theragram-M) 1 tab DAILY PO 05/20/19 09:00 05/22/19 08:41 Nicotine (Nicoderm Cq 21mg) 1 patch DAILY TD 05/20/19 09:00 05/22/19 08:41 Oseltamivir Phosphate (Tamiflu) 75 mg BID PO 05/22/19 09:00 05/22/19 20:18 Sertraline HCl (Zoloft) 50 mg DAILY PO 05/22/19 09:00 05/22/19 08:41 Thiamine HCl (Thiamine HCl) 100 mg BID PO 05/19/19 21:00 05/22/19 09:01 DC 05/22/19 08:41 Trazodone HCl (Desyrel) 100 mg QHSP PRN PO INSOMNIA 05/19/19 21:30 05/22/19 22:02 Allergies Coded Allergies: Sulfa (Sulfonamide Antibiotics) (Verified Allergy, Intermediate, hives, 10/05/18) ENVIROMENTAL (Verified Allergy, Unknown, 10/07/18) RENAE STRONG DO May 23, 2019 09:11
[2019-05-23] MEDS: NICOTINE 21MG/24HR 1 EA TRANSDERMAL TD SCH (10:24)
[2019-05-23] MEDS: FOLIC ACID 1 MG TAB PO SCH (10:25)
[2019-05-23] MEDS: OSELTAMIVIR PHOSPHATE 75 MG CAP (TAMIFLU) PO SCH ×2 (10:25→21:21)
[2019-05-23] MEDS: GABAPENTIN 400 MG CAP PO SCH ×3 (10:26→21:20)
[2019-05-23] MEDS: MULTIVITAMINS/MINERALS THERAP 1 TAB PO SCH (10:26)
[2019-05-23] MEDS: SERTRALINE HCL 50 MG TAB PO SCH (10:26)
--- NOTE | 2019-05-23 11:55 | MHDSPDOC ---
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 Alcohol use disorder, moderate to severe. Opioid use disorder, unspecified. Cannabis use disorder, severe. Cluster B personality traits. Tobacco use disorder, moderate. 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 He arrived intoxicated on alcohol. He has lost his job due to significant substance abuse. Consultants Involved Hospitalist/PCP screening Treatment and Progress On The Unit The patient was admitted to the inpatient mental health service. He was subsequently detoxed off of his alcohol, needing several doses of Ativan due to elevated CIWA scores. He was resumed on an SSRI, namely sertraline titrated up to 50 mg daily with positive effects. The patient did well on the inpatient mental health unit, participating well in groups and having no behavioral problems. The patient additionally slept with trazodone as well as an improved environment and detoxing from his various substances. He had been denying suicidal ideation and homicidal ideation through his admission. He eventually requested to go to rehab, he was accepted for a bed on the following Sunday following the weekend, due to leaving early his discharge was processed early so that he would be able to be transported. His friend picked up his medications which he will need to present to the rehab in order to have it given to him. The system and referral was coordinated, and the patient will leave Sunday following this date of service, if he continues to not be suicidal. Discharge Assessment 29-year-old man who presented with suicidal ideation after losing his job due to his substance use. The patient at the time of discharge did not meet criteria for involuntary admission/extension due to having a normal mental status exam, fair insight into the situation, They are engaged in the discharge process, as well as being friendly and amenable in behavioral control and havent been engaging in any observed concerning behavior or ideation recently. They decline voluntary extension/admission at this time and must be discharged in good gareth, as Im unable to make a case for holding the patient against their will. They may have historical risk factors of admissions and other interactions with psychiatry however, those are not modifiable from a clinical perspective. The patient will need to be discharged in good gareth. Mental Status Examination General: Well dressed with good hygiene Speech: Spontaneous and fluid Thought processes: Linear and logical MSK: Smooth and coordinated gait, no signs of tremors or involuntary orofacial movements Thought content: Future orientated Abstract reasoning, and computation: Intact Description of associations: Intact Description of abnormal or psychotic thoughts: Denies any suicidal or homicidal ideation. Denies any auditory or visual hallucinations. Does not appear to be responding to internal stimuli. Does not appear to be endorsing any bizarre or paranoid ideation. Judgment: fair Insight: fair Orientation: Alert and orientated 3 Cognition: Grossly normal Recent and remote memory: Intact Attention span and concentration: Intact Fund of knowledge: Adequate Mood: "okay" Affect: Euthymic with a full range Follow Up The social work team worked during the predischarge meeting in order to evaluate for further issues of lethality address them fully before discharge. They worked on safety planning with the patient's family members in order to ensure that the patient will have a safe and effective discharge. Time Spent The amount of time spent in the coordination of care for this patient was approximately 60 minutes. Vital Signs/I&Os Vital Signs Date Time Temp Pulse Resp B/P (MAP) Pulse Ox O2 Delivery O2 Flow Rate FiO2 05/23/19 06:20 97.3 95 18 129/81 (97) 05/19/19 21:14 98 Room Air Medications Scheduled Gabapentin (Gabapentin) 400 Mg Capsule, 400 MG PO TID for anxiety for 30 Days, #90 Nicotine (Nicotine Patch) 21 Mg Patch.td24, 1 PATCH TD DAILY for tobacco for 30 Days, #30 Oseltamivir Phosphate (Oseltamivir Phosphate) 75 Mg Capsule, 75 MG PO BID for flu for 5 Days, #10 Sertraline HCl (Sertraline HCl) 50 Mg Tablet, 50 MG PO DAILY for mood for 30 Days, #30 Scheduled PRN Trazodone HCl (Trazodone HCl) 50 Mg Tablet, 100 MG PO QHSP PRN for INSOMNIA for 30 Days, #30 Allergies Coded Allergies: Sulfa (Sulfonamide Antibiotics) (Verified Allergy, Intermediate, hives, 10/05/18) ENVIROMENTAL (Verified Allergy, Unknown, 10/07/18) LURENAE YEAGER DO May 23, 2019 11:55
[2019-05-23] MEDS ORDERED: GABA-845 PO (11:58)
[2019-05-23] MEDS ORDERED: TRAZ-252 PO (11:58)
[2019-05-23] MEDS ORDERED: SERT50TA29 PO (11:58)
[2019-05-23] MEDS ORDERED: NICO21PAT TD (11:58)
[2019-05-23] MEDS ORDERED: OSEL75CA2 PO (11:58)
[2019-05-23 15:58] VITALS: BP 168/88
[2019-05-23 16:00] VITALS: BP 168/88
[2019-05-23] MEDS: traZODone 50 MG TAB PO PRN (21:20)
[2019-05-24 06:37] VITALS: BP 136/86
[2019-05-24] MEDS: FOLIC ACID 1 MG TAB PO SCH (09:52)
[2019-05-24] MEDS: OSELTAMIVIR PHOSPHATE 75 MG CAP (TAMIFLU) PO SCH ×2 (09:52→21:21)
[2019-05-24] MEDS: SERTRALINE HCL 50 MG TAB PO SCH (09:53)
[2019-05-24] MEDS: GABAPENTIN 400 MG CAP PO SCH ×3 (09:53→21:21)
[2019-05-24] MEDS: MULTIVITAMINS/MINERALS THERAP 1 TAB PO SCH (09:53)
[2019-05-24] MEDS: NICOTINE 21MG/24HR 1 EA TRANSDERMAL TD SCH (09:54)
[2019-05-24 12:10] VITALS: BP 164/80
[2019-05-24 16:07] VITALS: BP 164/97
[2019-05-24 16:11] VITALS: BP 164/97
[2019-05-24 23:00] VITALS: BP 164/97
[2019-05-24] MEDS: traZODone 50 MG TAB PO PRN (23:21)
[2019-05-25 06:34] VITALS: BP 129/87
[2019-05-25] MEDS: NICOTINE 21MG/24HR 1 EA TRANSDERMAL TD SCH (08:27)
[2019-05-25] MEDS: GABAPENTIN 400 MG CAP PO SCH ×3 (08:28→20:41)
[2019-05-25] MEDS: FOLIC ACID 1 MG TAB PO SCH (08:28)
[2019-05-25] MEDS: SERTRALINE HCL 50 MG TAB PO SCH (08:28)
[2019-05-25] MEDS: OSELTAMIVIR PHOSPHATE 75 MG CAP (TAMIFLU) PO SCH ×2 (08:28→20:41)
[2019-05-25] MEDS: ACETAMINOPHEN TAB 650MG DOSE (2X325MG) PO PRN (08:28)
[2019-05-25] MEDS: MULTIVITAMINS/MINERALS THERAP 1 TAB PO SCH (08:28)
[2019-05-25 16:06] VITALS: BP 150/82
[2019-05-26] MEDS: ACETAMINOPHEN TAB 650MG DOSE (2X325MG) PO PRN (02:53)
[2019-05-26 06:30] VITALS: BP 142/98
[2019-05-26] MEDS: NICOTINE 21MG/24HR 1 EA TRANSDERMAL TD SCH (07:05)
[2019-05-26] MEDS: FOLIC ACID 1 MG TAB PO SCH (07:05)
[2019-05-26] MEDS: MULTIVITAMINS/MINERALS THERAP 1 TAB PO SCH (07:05)
[2019-05-26] MEDS: GABAPENTIN 400 MG CAP PO SCH (07:05)
[2019-05-26] MEDS: OSELTAMIVIR PHOSPHATE 75 MG CAP (TAMIFLU) PO SCH (07:05)
[2019-05-26] MEDS: SERTRALINE HCL 50 MG TAB PO SCH (07:05)
== END 2019-05-26 08:20 | DRG 773 ==
LOC: M ED 15:28 → M ED INP 21:23 → M PSY 22:10
PROVIDERS: ADMIT Psychiatry & Neurology Psychiatry; ATTEND Psychiatry & Neurology Psychiatry
DX: F11.94 Opioid use, unspecified with opioid-induced mood disorder (principal); F12.90 Cannabis use, unspecified, uncomplicated; F17.220 Nicotine dependence, chewing tobacco, uncomplicated; F60.89 Other specific personality disorders; R45.851 Suicidal ideations; Z79.899 Other long term (current) drug therapy; Z88.2 Allergy status to sulfonamides; F60.3 Borderline personality disorder; F10.94 Alcohol use, unspecified with alcohol-induced mood disorder